=== PATIENT | female | born 1955 | race Caucasian/White ===

== ENCOUNTER 2016-09-17 14:00 | Emergency (ER) | payer OTHER ==
[~2016-09-17] VITALS: Ht 157.5 cm; Wt 55.3 kg
--- NOTE | 2016-09-17 14:34 | ED PSYCHIATRIC COMPLAINT ---
History of Present Illness General Chief Complaint: General Adult Stated Complaint: ETOH DETOX Source: patient Exam Limitations: no limitations Vital Signs & Intake/Output Vital Signs & Intake/Output Vital Signs Date Time Temp Pulse Resp B/P B/P Pulse O2 O2 Flow FiO2 Mean Ox Delivery Rate 09/17 1656 93 16 131/73 09/17 1655 97.4 93 16 131/73 96 Room Air 09/17 1531 97.0 96 16 139/84 09/17 1531 97.0 96 16 139/84 94 Room Air 09/17 1406 98.5 112 18 136/86 97 Room Air Room Air Allergies Coded Allergies: Penicillins (UNKNOWN 09/17/16) Reconcile Medications Alprazolam 0.5 MG TABLET 1 TAB PO DAILY NEEDED ANXIETY (Reported) Triage Note: TRIAGE: 61 Y/O FEMALE PRESENTS FOR EVALUATION FOR ETOH DETOX. LAST DRINK YESTERDAY: 1 BOTTLE OF WINE. DENIES ILLICIT DRUG USE. DENIES SUICIDALITY OR HOMICIDALITY. REPORTS LAST DETOX AT [facility] FOR 1 WEEK 6 YEARS AGO. DENIES HISTORY OF SEIZURES. Triage Nurses Notes Reviewed? yes Onset: Abrupt Duration: day(s):, constant, continues in ED Timing: recent history HPI: 61-year-old female comes into emergency room for further evaluation of alcohol detox. Patient reports that she was [facility]. She was told that she cannot be admitted as an inpatient at that moment. Dr. Suazo instructed the staff tell her to come to [facility] to be evaluated. She denies any history of alcohol withdrawal seizures or DTs. She denies any other drug use. Last drink was yesterday. She reports that she took three 0.5 Xanax this morning around 6:30. no si/hi. Past History Travel History Traveled to [place] past 21 day No Medical History Any Pertinent Medical History? 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 No Review of Systems Review of Systems Constitutional: Reports: no symptoms. EENTM: Reports: no symptoms. Respiratory: Reports: no symptoms. Cardiovascular: Reports: no symptoms. GI: Reports: no symptoms. Genitourinary: Reports: no symptoms. Musculoskeletal: Reports: no symptoms. Skin: Reports: no symptoms. Neurological/Psychological: Reports: see HPI. Hematologic/Endocrine: Reports: no symptoms. Immunologic/Allergic: Reports: no symptoms. All Other Systems: Reviewed and Negative Physical Exam Physical Exam General Appearance: well developed/nourished, mild distress Head: atraumatic Eyes: Bilateral: normal appearance, PERRL, EOMI. Ears, Nose, Throat: normal ENT inspection, hearing grossly normal Neck: normal inspection Respiratory: normal breath sounds, no respiratory distress Cardiovascular: regular rate/rhythm Extremities: normal range of motion Neurological/Psychiatric: awake, agitated, alert, normal mood/affect Appearance/Memory/Insight: appropriate appearance Behavoir/Eye Contact/Speech: cooperative Thoughts/Hallucinations: normal thought pattern Skin: intact, normal color, warm/dry SAD PERSONS Done? patient not suicidal Progress Differential Diagnosis: dementia, drug intoxication, drug overdose, drug withdrawal, electrolyte abnormality, encephalitis, hypoglycemia, hypothyroidism, IC hem/mass/tumor, meningitis Plan of Care: Orders Procedure Date/time Status Regular Diet 09/17 D Active URINE DRUG SCREEN FOR ER ONLY 09/17 142 Complete CIWA 09/17 142 Active ETHANOL 09/17 142 Complete COMPREHENSIVE METABOLIC PANEL 09/18 1423 Complete CBC WITHOUT DIFFERENTIAL 09/18 1423 Complete Laboratory Tests 09/17/16 1437: Urine Opiates Screen < 100.00, Methadone Screen < 40, Barbiturate Screen < 60, Ur Phencyclidine Scrn < 6.00, Amphetamines Screen < 100, U Benzodiazepines Scrn > 800 H, Urine Cocaine Screen < 50, Urine Cannabis Screen < 5.00 09/17/16 1434: Anion Gap 12, Estimated GFR > 60, BUN/Creatinine Ratio 17.5, Glucose 109 H, Calcium 9.3, Total Bilirubin 0.6, AST 112 H, ALT 103 H, Alkaline Phosphatase 69, Total Protein 6.7, Albumin 4.2, Globulin 2.5, Albumin/Globulin Ratio 1.7, CBC w Diff NO MAN DIFF REQ, RBC 4.30, MCV 92.8, MCH 30.9, RDW 13.4, MPV 7.1 L, Gran % 59.0, Lymphocytes % 31.6, Monocytes % 8.0, Eosinophils % 0.9, Basophils % 0.5, Absolute Granulocytes 4.3, Absolute Lymphocytes 2.3, Absolute Monocytes 0.6 , Absolute Eosinophils 0.1, Absolute Basophils 0, PUBS MCHC 33.3, Serum Alcohol < 10.0 Comments: 09/17/2016 5:46:[address] Suazo. Due to the benzodiazepine level being high and urine patient will be discharged and admitted to [facility] on Monday per Dr. Suazo. We will give one dose of Xanax tomorrow. Patient was instructed to take no more than 1 dose of 0.5 mg Xanax. Patient stands and agrees a plan of care.CIYWA SCORE was a 2 according to the nurse and the last one. She clinically looks well. No apparent distress. Departure Departure Disposition: HOME OR SELF CARE Condition: Stable Clinical Impression Primary Impression: ETOH abuse Referrals: CAM PATEL,REMIGIO SARMIENTO (PCP/Family) Additional Instructions: Take one 0.5 mg Xanax tab tomorrow morning. Do not take any further tabs of Xanax. You're going to check in at [facility] on Monday. Please go over all results of today's visit with your primary care doctor. Contact your primary care doctor to let them know you were here in the emergency room. There may be nonspecific findings which may not be related to your visit today here in the emergency room but may require further evaluation and chronic monitoring by your primary care doctor. If you had a laceration today the chance of foreign body always remains. You should follow-up with your primary care doctor for recheck in 3-5 days for a wound check. If you had an x-ray done there is a chance that a fracture could have been missed on initial read and you should follow-up with your primary care doctor for repeat x-rays if symptoms persist. If your blood pressure was elevated here in the emergency room please have rechecked by her primary care doctor within the next 48 hours by your primary care doctor. If you were prescribed a narcotic here in the emergency room or any type of controlled substances you're not allowed to drive while taking this medication or operate any type of heavy machinery. Narcotics can make you feel lightheaded dizziness nausea and can cause constipation. 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 Thank you for choosing [facility] emergency room. Please return to the emergency room immediately if you have any other concerns worsening of symptoms. Departure Forms: Customer Survey General Discharge Information
[2016-09-17 14:58] LABS: ABSOLUTE BASOPHIL COUNT 0 /CUMM (0.0-0.2); ABSOLUTE EOSINOPHIL COUNT 0.1 /CUMM (0.0-0.7); ABSOLUTE GRANULOCYTE CT 4.3 /CUMM (1.4-6.5); ABSOLUTE LYMPH COUNT 2.3 /CUMM (1.2-3.4); ABSOLUTE MONOCYTE COUNT 0.6 /CUMM (0.10-0.60); BASOPHIL % 0.5 % (0.0-2.0); EOSINOPHIL % 0.9 % (0-5); HEMATOCRIT 39.9 % (37-47); MEAN CORPUSCULAR HGB 30.9 PG (27.0-31.0); MEAN CORPUSCULAR HGB CONC 33.3 G/DL (33.0-37.0); MEAN CORPUSCULAR VOLUME 92.8 FL (81.0-99.0); MEAN PLATELET VOLUME 7.1 FL (7.4-10.4); PLATELET COUNT 290 /CUMM (130-400); RBC DISTRIBUTION WIDTH 13.4 % (11.5-14.5); WHITE BLOOD CELL COUNT 7.4 /CUMM (4.8-10.8)
[2016-09-17] MEDS ORDERED: ALPRAZOLAM0.5 M4 PO (15:11)
[2016-09-17 16:56] VITALS: BP 131/73
== END 2016-09-17 17:25 ==
LOC: ERH 14:00
PROVIDERS: Physician Assistant Medical
DX: F10.10 Alcohol abuse, uncomplicated (principal); F13.10 Sedative, hypnotic or anxiolytic abuse, uncomplicated
CPT/HCPCS: 80307; G0480